=== PATIENT | male | born 2000 | race Caucasian/White ===

== ENCOUNTER 2020-03-24 20:56 | Emergency (ER) | payer OTHER ==
--- NOTE | 2020-03-24 21:04 | ER Document Report ---
ED ENT - General Stated Complaint: SORE THROAT Time Seen by Provider: 03/24/20 21:01 Notes: CHIEF COMPLAINT: Sore throat for days HPI: 19-year-old male presenting with an intermittent sore throat with a scratchy sensation for the last 3 to 4 days. States it comes and goes. No fever. No cough. No nasal congestion. States he has been tested for Covid several times in the last months and they are always negative. States he does get strep throat a lot. Patient denies other complaints at this time ROS: See HPI - all other systems were reviewed and are otherwise negative Constitutional: no fever Eyes: no drainage, no blurred vision ENT: no runny nose, positive sore throat Cardiovascular: no chest pain Resp: no SOB, no cough GI: no vomiting, no diarrhea, no abdominal pain : no dysuria Integumentary: no rash Allergy: no hives Musculoskeletal: no extremity pain or swelling Neurological: no numbness/tingling MEDICATIONS: I agree with the patient medications as charted by the RN. ALLERGIES: I agree with the allergies as charted by the RN. PAST MEDICAL HISTORY/PAST SURGICAL HISTORY: Reviewed and agree as charted by RN. SOCIAL HISTORY: Reviewed and agree as charted by RN. FAMILY HISTORY: No significant familial comorbid conditions directly related to patient complaint EXAM: Reviewed vital signs as charted by RN. CONSTITUTIONAL: Alert and oriented and responds appropriately to questions. Well-appearing; well-nourished HEAD: Normocephalic; atraumatic EYES: PERRL; Conjunctivae clear, sclerae non-icteric ENT: normal nose; no rhinorrhea; moist mucous membranes; posterior pharynx with mild pharyngeal erythema, no uvula edema or deviation, no tonsillar hypertrophy, phonation normal NECK: Supple without meningismus; non-tender; no cervical lymphadenopathy, no masses CARD: RRR; no murmurs, no clicks, no rubs, no gallops; symmetric distal pulses RESP: Normal chest excursion without splinting or tachypnea; breath sounds clear and equal bilaterally; no wheezes, no rhonchi, no rales, pulse oximetry 98% on room air not hypoxic ABD/GI: non-distended. BACK: The back appears normal EXT: Normal ROM in all joints; no cyanosis, no effusions, no edema SKIN: Normal color for age and race; warm; dry; good turgor; no acute lesions noted NEURO: Moves all extremities equally; Motor and sensory function intact PSYCH: The patient's mood and manner are appropriate. Grooming and personal hygiene are appropriate. MDM: 19-year-old male presenting for sore throat for several days. Intermittent. No fever. Patient declines Covid test at this time. Will obtain strep and mono. If negative this may still be a viral etiology and will treat symptomatically - Related Data Allergies/Adverse Reactions: Penicillins Allergy (Verified 03/24/20 21:19) Past Medical History - Social History Smoking Status: Unknown if Ever Smoked Family History: Reviewed & Not Pertinent Physical Exam - Vital signs Vitals: Temp 98.3 F 03/24/20 20:57 Course - Re-evaluation Re-evalutation: 03/24/20 21:49 Patient is positive for mononucleosis. I discussed this with him. We discussed precautions including no sports. Follow-up PCP - Vital Signs Vital signs: Temp Pulse Resp BP Pulse Ox 98.3 F 86 20 153/80 H 98 03/24/20 21:02 03/24/20 21:02 03/24/20 21:02 03/24/20 21:02 03/24/20 21:02 - Laboratory Results Laboratory Results Interpreted: 03/24/20 21:11 Monotest POSITIVE H Critical Laboratory Results Reviewed: No Critical Results - Radiology Results Critical Radiology Results Reviewed: No Critical Results Discharge - Discharge Clinical Impression: Mononucleosis Qualifiers: Infectious mononucleosis etiology: unspecified organism Infectious mononucleosis complication: without complication Qualified Code(s): B27.90 - Infectious mononucleosis, unspecified without complication Condition: Stable Disposition: HOME, SELF-CARE Instructions: Mononucleosis (OM) Additional Instructions: Take Motrin or Aleve for fever and body ache. Rest. Hydrate well. No contact sports. Follow-up with primary care for further evaluation and treatment call for appointment. You were positive for mononucleosis tonight which is a viral illness. This illness may last 4 to 6 weeks. Referrals: YI THOMAS MD [ACTIVE STAFF] - Follow up as needed
[2020-03-24 21:56] VITALS: BP 132/70
== END 2020-03-24 22:09 | disposition home or self-care (01) ==
LOC: ER 20:56
DX: B27.90 Infectious mononucleosis, unspecified without complication (principal); J02.9 Acute pharyngitis, unspecified
CPT/HCPCS: 36415; 86308; 87070; 87880; 99282